=== PATIENT | male | born 1990 | race Caucasian/White ===

== ENCOUNTER 2018-01-27 13:24 | Emergency (ER) | payer BC, SELFPAY ==
[2018-01-27 13:31] VITALS: BP 126/74; PULSE 69; RESP 17; TEMP 36.7; O2SAT 99
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
--- NOTE | 2018-01-27 14:10 | NUR.NOTE ---
Nursing Note: Ice pack given for pain/comfort
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
[2018-01-27] MEDS: Ibuprofen 600 MG TAB PO (15:30)
[2018-01-27] MEDS: Acetaminophen 325 MG TAB 650 MG PO (15:30)
[2018-01-27 15:31] VITALS: BP 121/65; PULSE 60; RESP 16; TEMP 36.7; O2SAT 99
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
== END 2018-01-27 16:09 | disposition home or self-care (01) ==
PROVIDERS: Emergency Provider Student in an Organized Health Care Education/Training Program
DX: S42.022A Displaced fracture of shaft of left clavicle, initial encounter for closed fracture (principal); V18.0XXA Pedal cycle driver injured in noncollision transport accident in nontraffic accident, initial encounter; Y93.55 Activity, bike riding
CPT/HCPCS: 23500; 73000; L3650